=== PATIENT | female | born 1960 | race Caucasian/White ===

== ENCOUNTER 2022-03-18 04:54 | Emergency (ER) | payer BC ==
[~2022-03-18] VITALS: Ht 165.1 cm; Wt 97.1 kg
[~2022-03-18 04:54] MED LIST: AMLODIPINE BESYL5 MG PO; DOXYCYCLINE HY100 MG PO; LEVAQUIN500 MG PO; LEVOTHYROXINE75 MCG PO; METHYLPREDNISOLO4 M1 PO; NORCO 5-325 TA1 EACH PO; PERCOCET 7.5-31 EACH PO
[2022-03-18] MEDS ORDERED: LABETALOL HCL100 MG PO (05:06)
[2022-03-18] MEDS ORDERED: OMEPRAZOLE20 MG PO (05:06)
[2022-03-18] MEDS ORDERED: LISINOPRIL-HCT1 EACH PO (05:08)
[2022-03-18] MEDS ORDERED: BACTRIM DS TAB1 EACH PO (05:29)
== END 2022-03-18 05:42 | disposition home or self-care (01) ==
LOC: ED 04:54
PROC: 0W980ZZ Drainage of Chest Wall, Open Approach (ICD-10-PCS; principal; 2022-03-18)
DX: J86.9 Pyothorax without fistula (principal); I10 Essential (primary) hypertension; E03.9 Hypothyroidism, unspecified; F17.200 Nicotine dependence, unspecified, uncomplicated; Z88.8 Allergy status to other drugs, medicaments and biological substances; Z79.899 Other long term (current) drug therapy
CPT/HCPCS: 10060; 87070; 87075; 87205; 99283-25; A9270

== ENCOUNTER 2024-05-29 07:34 | Emergency (ER) | payer BC ==
[~2024-05-29] VITALS: Ht 165.1 cm; Wt 90.6 kg
[~2024-05-29 07:34] MED LIST changes: +BACTRIM DS TAB1 EACH PO; +LABETALOL HCL100 MG PO; +LISINOPRIL-HCT1 EACH PO; +OMEPRAZOLE20 MG PO
[2024-05-29] MEDS ORDERED: ALBUTEROL SULFATE 8 GM HOME.PACK INH ONE (08:15)
[2024-05-29] MEDS ORDERED: INHALER, ASSIST DEVICES 1 EACH SPACER MISC ONE (08:15)
[2024-05-29] MEDS ORDERED: PHENTERMINE H37.5 M1 PO (08:34)
[2024-05-29] MEDS ORDERED: LOSARTAN-HCTZ1 EAC2 PO (08:34)
[2024-05-29] MEDS ORDERED: PREDNISONE20 MG PO (08:38)
[2024-05-29] MEDS ORDERED: ZITHROMAX250 MG PO (08:38)
[2024-05-29 08:45] VITALS: BP 127/83
[2024-05-29] MEDS ORDERED: predniSONE 20 MG TAB PO ONE (08:45)
== END 2024-05-29 08:45 | disposition home or self-care (01) ==
LOC: ED 07:34
DX: J20.9 Acute bronchitis, unspecified (principal); I10 Essential (primary) hypertension; E03.9 Hypothyroidism, unspecified; F17.200 Nicotine dependence, unspecified, uncomplicated; Z88.8 Allergy status to other drugs, medicaments and biological substances; Z79.890 Hormone replacement therapy; Z79.899 Other long term (current) drug therapy
CPT/HCPCS: 71045; 94640; 94664; 99283-25; J7512